=== PATIENT | female | born 1950 | race Hispanic/Latino ===

== ENCOUNTER 2019-07-16 11:00 | Emergency (ER) | payer OTHER, MEDICARE ==
[~2019-07-16 11:00] MED LIST: AMIO200T44 PO; CALC-877 PO; CHOL500045 PO; CIPR-279 PO; FURO-151 PO; INSU10VI3 SQ; LEVO25TA54 PO; LOSA100T58 PO; METF-445 PO; METO50TA18 PO; OMEG1CAP43 PO; POTA10CA44 PO; SIMV40TA59 PO; WARF2TAB57 PO; vit b PO
[2019-07-16] MEDS ORDERED: ONDANSETRON HCL 4 MG/2 ML VIAL ONE (11:29)
[2019-07-16] MEDS ORDERED: SODIUM CHLORIDE 0.9% 1000ML 1,000 ML IV ONE (11:30)
[2019-07-16 11:54] LABS: BASOPHILS % (AUTO) 0.4 % (0.0-5.0); EOSINOPHILS % (AUTO) 0.2 % (0.0-8.0); HEMATOCRIT 37.3 % (36-48); LYMPHOCYTES % (AUTO) 6.1 % (21.0-51.0); MEAN CORPUSCULAR HEMOGLOBIN 31.5 pg (27.0-33.0); MEAN CORPUSCULAR VOLUME 95.6 fL (79-99); MONOCYTES % (AUTO) 3.4 % (3.0-13.0); NEUTROPHILS % (AUTO) 89.4 % (40.0-77.0); PLATELET COUNT (AUTO) 320 K/uL (130-400); RED CELL DISTRIBUTION WIDTH 15.8 % (11.0-15.5); WHITE BLOOD COUNT (AUTO) 21.2 K/uL (4.8-10.8)
[2019-07-16 12:07] LABS: POTASSIUM 3.9 mmol/L (3.5-5.1)
[2019-07-16 12:11] LABS: ALBUMIN 2.2 g/dL (3.5-5.0); BILIRUBIN,DIRECT 0.3 mg/dL (0.0-0.3); BILIRUBIN,TOTAL 0.5 mg/dL (0.2-1.0)
[2019-07-16 12:30] LABS: APPEARANCE,URINE Cloudy (CLEAR); BILIRUBIN,URINE Negative (NEGATIVE); COLOR,URINE Yellow (YELLOW); GLUCOSE, URINE (UA) >=1000 mg/dL (NEGATIVE); KETONES,URINE Trace mg/dL (NEGATIVE); LEUKOCYTE ESTERASE ,URINE Negative (NEGATIVE); NITRATE,URINE Positive (NEGATIVE); OCCULT BLOOD,URINE Moderate (NEGATIVE); PROTEIN,URINE POS 1+ mg/dL (NEGATIVE)
[2019-07-16 12:40] LABS: BACTERIA,URINE Many /HPF (None Seen); RBC,URINE 0-1 /HPF (0-1)
[2019-07-16] MEDS ORDERED: CEFTRIAXONE SODIUM 2 GM VIAL ONE (15:03)
[2019-07-16] MEDS ORDERED: SODIUM CHLORIDE 0.9% 50 ML IV ONE (15:04)
== END 2019-07-16 15:40 | disposition home or self-care (01) ==
LOC: EDH 11:00
DX: K52.9 Noninfective gastroenteritis and colitis, unspecified (principal); E86.0 Dehydration; I10 Essential (primary) hypertension; E11.9 Type 2 diabetes mellitus without complications; Z95.0 Presence of cardiac pacemaker
CPT/HCPCS: 36415; 74176; 80048; 80076; 81001; 82550; 82948; 83690; 85025; 87077; 87088; 87186; 96361; 96374; 96375; 99284; J0696; J2405; J7030

== ENCOUNTER 2019-07-31 14:59 | Inpatient (IN) | payer OTHER, MEDICARE ==
[~2019-07-31] VITALS: Ht 160 cm; Wt 107.0 kg
[2019-07-31 15:30] LABS: BASOPHILS % (AUTO) 0.6 % (0.0-5.0); EOSINOPHILS % (AUTO) 0.9 % (0.0-8.0); HEMATOCRIT 33.3 % (36-48); LYMPHOCYTES % (AUTO) 7.6 % (21.0-51.0); MEAN CORPUSCULAR HEMOGLOBIN 31.6 pg (27.0-33.0); MEAN CORPUSCULAR VOLUME 95.7 fL (79-99); MONOCYTES % (AUTO) 5.5 % (3.0-13.0); NEUTROPHILS % (AUTO) 84.7 % (40.0-77.0); PLATELET COUNT (AUTO) 330 K/uL (130-400); RED BLOOD CELL COUNT(AUTO) 3.48 MIL/uL (4.00-5.50); RED CELL DISTRIBUTION WIDTH 17.6 % (11.0-15.5); WHITE BLOOD COUNT (AUTO) 19.6 K/uL (4.8-10.8)
[2019-07-31 15:41] LABS: INR 1.05 (0.85-1.15); PARTIAL THROMBOPLASTIN TIME 29.4 SEC (26.3-35.5); PROTHROMBIN TIME 11.3 SEC (9.6-11.6)
[2019-07-31 15:45] LABS: POTASSIUM 5.1 mmol/L (3.5-5.1)
[2019-07-31 15:49] LABS: ALBUMIN 2.1 g/dL (3.5-5.0); BILIRUBIN,TOTAL 0.4 mg/dL (0.2-1.0); TOTAL PROTEIN, SERUM 6.5 g/dL (6.0-8.3)
[2019-07-31] MEDS ORDERED: ZOSYN 3.375GM+NS 50ML 50 ML IV ONE (16:22)
[2019-07-31 17:36] LABS: APPEARANCE,URINE Cloudy (CLEAR); BILIRUBIN,URINE Negative (NEGATIVE); COLOR,URINE Yellow (YELLOW); GLUCOSE, URINE (UA) Negative (NEGATIVE); KETONES,URINE Negative (NEGATIVE); LEUKOCYTE ESTERASE ,URINE Large (NEGATIVE); NITRATE,URINE Negative (NEGATIVE); OCCULT BLOOD,URINE Negative (NEGATIVE); PH,URINE 5.5 (5.0-8.0); PROTEIN,URINE Negative (NEGATIVE)
[2019-07-31 17:51] LABS: BACTERIA,URINE Few /HPF (None Seen); RBC,URINE 0-1 /HPF (0-1); SQUAMOUS EPITHELIAL CELL,UR Moderate /HPF (0-2); YEAST,URINE BUDDING Few /HPF (None Seen)
[2019-07-31] MEDS ORDERED: LEVOFLOXACIN 500 MG/D5W 100 ML 100 ML ONE (17:55)
[2019-07-31] MEDS: SODIUM CHLORIDE 0.9% 1000ML 1,000 ML IV SCH (18:03)
[2019-07-31] MEDS: METRONIDAZOLE 500MG/100ML BAG 100 ML IV SCH (18:15)
[2019-07-31] MEDS ORDERED: HYDRALAZINE HCL 20 MG/ML VIAL IV PRN (18:15)
[2019-07-31] MEDS ORDERED: MORPHINE SULFATE 2 MG/ML 1ML SYG IV PRN (18:15)
[2019-07-31] MEDS ORDERED: ONDANSETRON HCL 4 MG/2 ML VIAL IV PRN (18:15)
[2019-07-31] MEDS ORDERED: ACETAMINOPHEN 325 MG TAB PO PRN ×2 (18:15)
[2019-07-31] MEDS ORDERED: METRONIDAZOLE 500MG/100ML BAG 100 ML ONE (19:24)
[2019-07-31] MEDS ORDERED: FAMOTIDINE 20MG TAB 20 MG TAB ONE (19:24)
[2019-07-31] MEDS: ZOSYN 3.375GM+NS 50ML 50 ML IV SCH (20:00)
[2019-07-31] MEDS: INSULIN HUMULIN R 100 UNIT/ML 3ML SQ SCH (21:00)
[2019-07-31] MEDS: FAMOTIDINE 20MG TAB 20 MG TAB PO SCH (21:00)
[2019-07-31 23:15] VITALS: BP 125/60
[2019-08-01] MEDS: METRONIDAZOLE 500MG/100ML BAG 100 ML IV SCH ×2 (02:23→11:33)
[2019-08-01 03:46] LABS: BASOPHILS % (AUTO) 0.6 % (0.0-5.0); EOSINOPHILS % (AUTO) 1.5 % (0.0-8.0); HEMATOCRIT 30.5 % (36-48); LYMPHOCYTES % (AUTO) 9.6 % (21.0-51.0); MEAN CORPUSCULAR HEMOGLOBIN 32.3 pg (27.0-33.0); MEAN CORPUSCULAR HGB CONC 33.4 g/dL (32.0-36.0); MEAN CORPUSCULAR VOLUME 96.5 fL (79-99); MONOCYTES % (AUTO) 6.5 % (3.0-13.0); NEUTROPHILS % (AUTO) 81.2 % (40.0-77.0); PLATELET COUNT (AUTO) 302 K/uL (130-400); RED BLOOD CELL COUNT(AUTO) 3.16 MIL/uL (4.00-5.50); RED CELL DISTRIBUTION WIDTH 17.4 % (11.0-15.5); WHITE BLOOD COUNT (AUTO) 19.8 K/uL (4.8-10.8)
[2019-08-01 04:02] LABS: CREATININE 3.6 mg/dL (0.5-1.5); MAGNESIUM 2.3 mg/dL (1.80-2.40); PHOSPHORUS 4.3 mg/dL (2.5-4.9); POTASSIUM 5.1 mmol/L (3.5-5.1); URIC ACID 10.4 mg/dL (2.6-7.2)
[2019-08-01] MEDS ORDERED: HYDROMORPHONE HCL 2 MG/ML VIAL IVP PRN (04:15)
[2019-08-01 04:20] VITALS: BP_SYST 108; BP_SYST 127; BP_DIAS 51; BP_DIAS 74
[2019-08-01] MEDS: INSULIN HUMULIN R 100 UNIT/ML 3ML SQ SCH ×4 (06:59→20:21)
[2019-08-01] MEDS ORDERED: GABA-531 PO (07:34)
[2019-08-01] MEDS ORDERED: RIVA15TA PO (07:34)
[2019-08-01] MEDS ORDERED: LINA5TAB PO (07:34)
[2019-08-01] MEDS ORDERED: [UNRECOGNIZED DRUG - MIXTURE] PO (07:34)
[2019-08-01] MEDS ORDERED: METR-152 PO (07:34)
[2019-08-01] MEDS ORDERED: BUME2TAB5 PO (07:34)
[2019-08-01] MEDS ORDERED: METO-391 PO (07:34)
[2019-08-01] MEDS ORDERED: BUME1TAB6 PO (07:34)
[2019-08-01] MEDS ORDERED: ISOS30TA6 PO (07:34)
[2019-08-01] MEDS ORDERED: PROM25TA7 PO (07:34)
[2019-08-01] MEDS ORDERED: AMLO-257 PO (07:34)
[2019-08-01 08:11] VITALS: BP 114/56
[2019-08-01] MEDS ORDERED: ENOXAPARIN SODIUM 40 MG/0.4 ML SYRINGE SQ SCH (09:00)
[2019-08-01] MEDS: SODIUM CHLORIDE 0.9% 1000ML 1,000 ML IV SCH ×2 (09:23→19:47)
[2019-08-01] MEDS: FAMOTIDINE 20MG TAB 20 MG TAB PO SCH (09:24)
[2019-08-01] MEDS: ZOSYN 3.375GM+NS 50ML 50 ML IV SCH ×2 (09:24→19:47)
[2019-08-01] MEDS: NYSTATIN 15 GM POWDER TP SCH ×2 (11:33→19:47)
[2019-08-01 11:45] VITALS: BP 109/54
--- NOTE | 2019-08-01 13:47 | NUR ---
INITIAL SW spoke with patient. She states she lives with daughter, Geri Pradhan but doesn't remember phone number. No home health but does have [facility] weekly but does not remember name of agency or number of hours per week. DME: [facility]. Patient states she needs help with ADL's and does not drive. Family and provider assist as needed. PCP is Dr. Oliver Glaser. Pharmacy is [facility]. DCP is home. Addendum: 08/01/19 at 1349 by ELADIA FARMER SS Amended: Links added.
[2019-08-01 17:02] VITALS: BP 130/59
[2019-08-01] MEDS ORDERED: PROMETHAZINE HCL 25 MG TABLET PO PRN (18:30)
[2019-08-01 19:03] VITALS: BP 103/47
[2019-08-01] MEDS: AMIODARONE HCL 200 MG TABLET PO SCH (19:47)
[2019-08-01] MEDS: DOCUSATE SODIUM 100 MG CAP PO SCH (19:47)
[2019-08-01] MEDS: BISACODYL 5 MG TABLET.DR PO SCH (19:47)
[2019-08-01] MEDS: GABAPENTIN 300 MG CAPSULE PO SCH (20:24)
[2019-08-01 23:03] VITALS: BP 102/46
[2019-08-02 04:00] VITALS: BP 114/46
[2019-08-02] MEDS: INSULIN HUMULIN R 100 UNIT/ML 3ML SQ SCH ×4 (05:37→20:34)
[2019-08-02 05:45] LABS: BASOPHILS % (AUTO) 0.5 % (0.0-5.0); EOSINOPHILS % (AUTO) 0.8 % (0.0-8.0); HEMATOCRIT 31.3 % (36-48); LYMPHOCYTES % (AUTO) 7.8 % (21.0-51.0); MEAN CORPUSCULAR HEMOGLOBIN 31.7 pg (27.0-33.0); MEAN CORPUSCULAR HGB CONC 32.9 g/dL (32.0-36.0); MEAN CORPUSCULAR VOLUME 96.3 fL (79-99); MONOCYTES % (AUTO) 4.9 % (3.0-13.0); NEUTROPHILS % (AUTO) 85.6 % (40.0-77.0); PLATELET COUNT (AUTO) 290 K/uL (130-400); RED BLOOD CELL COUNT(AUTO) 3.25 MIL/uL (4.00-5.50); RED CELL DISTRIBUTION WIDTH 17.7 % (11.0-15.5)
[2019-08-02] MEDS: LEVOTHYROXINE 100 MCG TABLET PO SCH (05:52)
[2019-08-02 06:02] LABS: CREATININE 3.1 mg/dL (0.5-1.5); CRP QUANTITATIVE 69.3 mg/L (0.00-9.0); MAGNESIUM 2.2 mg/dL (1.80-2.40); POTASSIUM 5.2 mmol/L (3.5-5.1)
[2019-08-02 07:30] VITALS: BP 102/51
[2019-08-02] MEDS: ZOSYN 3.375GM+NS 50ML 50 ML IV SCH ×2 (08:00→22:47)
[2019-08-02 08:10] LABS: HEPATITIS A ANTIBODY IGM Negative (Negative); HEPATITIS B CORE IGM Negative (Negative); HEPATITIS Bs ANTIGEN SCREEN P Negative (Negative)
[2019-08-02] MEDS: BISACODYL 5 MG TABLET.DR PO SCH ×3 (09:00→22:46)
[2019-08-02] MEDS: METOPROLOL SUCCINATE 50 MG TAB.SR.24H PO SCH (09:00)
[2019-08-02] MEDS: FAMOTIDINE 20MG TAB 20 MG TAB PO SCH (10:12)
[2019-08-02] MEDS: GABAPENTIN 300 MG CAPSULE PO SCH ×3 (10:12→22:47)
[2019-08-02] MEDS: DOCUSATE SODIUM 100 MG CAP PO SCH ×2 (10:12→22:46)
[2019-08-02] MEDS: NYSTATIN 15 GM POWDER TP SCH ×2 (10:14→22:47)
[2019-08-02] MEDS: SODIUM CHLORIDE 0.9% 1000ML 1,000 ML IV SCH ×2 (10:14→22:50)
[2019-08-02] MEDS: LINAGLIPTIN 5 MG TABLET PO SCH (10:15)
[2019-08-02 10:43] LABS: ALBUMIN 1.7 g/dL (3.5-5.0); BILIRUBIN,DIRECT 0.4 mg/dL (0.0-0.3); BILIRUBIN,TOTAL 0.6 mg/dL (0.2-1.0); TOTAL PROTEIN, SERUM 5.5 g/dL (6.0-8.3)
[2019-08-02] MEDS ORDERED: SODIUM POLYSTYRENE SULFONATE 15 GM/60 ML ML PO SCH (10:45)
[2019-08-02 11:00] VITALS: BP 108/54
[2019-08-02] MEDS: AMIODARONE HCL 200 MG TABLET PO SCH ×2 (13:20→22:46)
[2019-08-02 16:00] VITALS: BP 106/65
[2019-08-02] MEDS: RIVAROXABAN 15 MG TABLET PO SCH (17:38)
[2019-08-02 19:10] VITALS: BP 115/65
[2019-08-02 23:16] VITALS: BP 121/54
[2019-08-03 03:20] VITALS: BP 123/59
[2019-08-03 04:11] LABS: BASOPHILS % (AUTO) 0.4 % (0.0-5.0); EOSINOPHILS % (AUTO) 0.2 % (0.0-8.0); LYMPHOCYTES % (AUTO) 6.6 % (21.0-51.0); MEAN CORPUSCULAR HEMOGLOBIN 32.7 pg (27.0-33.0); MEAN CORPUSCULAR HGB CONC 33.1 g/dL (32.0-36.0); MEAN CORPUSCULAR VOLUME 98.8 fL (79-99); MONOCYTES % (AUTO) 4.5 % (3.0-13.0); NEUTROPHILS % (AUTO) 87.6 % (40.0-77.0); PLATELET COUNT (AUTO) 321 K/uL (130-400); RED BLOOD CELL COUNT(AUTO) 3.24 MIL/uL (4.00-5.50); RED CELL DISTRIBUTION WIDTH 18.2 % (11.0-15.5); WHITE BLOOD COUNT (AUTO) 22.2 K/uL (4.8-10.8)
[2019-08-03 04:40] LABS: ALBUMIN 1.8 g/dL (3.5-5.0); BILIRUBIN,TOTAL 0.7 mg/dL (0.2-1.0); CREATININE 2.9 mg/dL (0.5-1.5); PHOSPHORUS 4.1 mg/dL (2.5-4.9); POTASSIUM 4.7 mmol/L (3.5-5.1); TOTAL PROTEIN, SERUM 5.9 g/dL (6.0-8.3)
[2019-08-03] MEDS: LEVOTHYROXINE 100 MCG TABLET PO SCH (06:15)
[2019-08-03] MEDS: INSULIN HUMULIN R 100 UNIT/ML 3ML SQ SCH ×4 (06:15→20:41)
[2019-08-03 07:23] VITALS: BP 146/57
[2019-08-03] MEDS: DOCUSATE SODIUM 100 MG CAP PO SCH ×2 (09:00→20:17)
[2019-08-03] MEDS: GABAPENTIN 300 MG CAPSULE PO SCH ×3 (09:00→20:17)
[2019-08-03] MEDS: BISACODYL 5 MG TABLET.DR PO SCH ×2 (09:00→20:17)
[2019-08-03] MEDS: ZOSYN 3.375GM+NS 50ML 50 ML IV SCH (10:42)
[2019-08-03 10:58] VITALS: BP 119/67
[2019-08-03] MEDS: SODIUM CHLORIDE 0.9% 1000ML 1,000 ML IV SCH (12:43)
[2019-08-03] MEDS: NYSTATIN 15 GM POWDER TP SCH ×2 (13:22→20:41)
[2019-08-03] MEDS: FAMOTIDINE 20MG TAB 20 MG TAB PO SCH (13:22)
[2019-08-03] MEDS: AMIODARONE HCL 200 MG TABLET PO SCH ×2 (13:22→20:17)
[2019-08-03] MEDS: LINAGLIPTIN 5 MG TABLET PO SCH (13:22)
[2019-08-03] MEDS: METOPROLOL SUCCINATE 50 MG TAB.SR.24H PO SCH (13:24)
[2019-08-03 15:56] VITALS: BP 148/46
[2019-08-03] MEDS ORDERED: MEROPENEM 500 MG VIAL IVP SCH (17:00)
[2019-08-03] MEDS ORDERED: RENAL DOSE IV PRN (17:00)
[2019-08-03] MEDS: RIVAROXABAN 15 MG TABLET PO SCH (17:17)
--- NOTE | 2019-08-03 18:13 | NUR ---
ID CONSULT aware of consult.
[2019-08-03 19:01] LABS: ABG BASE EXCESS 0.4 mmol/L (-2.0-3.0); ABG HCO3 25.2 mmol/L (21.0-28.0); ABG OXYGEN SATURATION 90.7 % (95.0-99.0); ABG PCO2 41 mmHg (32-45)
[2019-08-03 20:00] VITALS: BP 127/58
[2019-08-03] MEDS: MEROPENEM 500 MG VIAL IVP SCH (20:17)
[2019-08-04] VITALS (7 sets, daily range): BP systolic 101–141; BP diastolic 49–60
[2019-08-04] MEDS: SODIUM CHLORIDE 0.9% 1000ML 1,000 ML IV SCH ×3 (01:50→22:18)
[2019-08-04 04:03] LABS: HEMATOCRIT 31.2 % (36-48); MEAN CORPUSCULAR HEMOGLOBIN 31.7 pg (27.0-33.0); MEAN CORPUSCULAR HGB CONC 32.1 g/dL (32.0-36.0); PLATELET COUNT (AUTO) 293 K/uL (130-400); RED BLOOD CELL COUNT(AUTO) 3.15 MIL/uL (4.00-5.50); RED CELL DISTRIBUTION WIDTH 18.7 % (11.0-15.5)
[2019-08-04 04:18] LABS: ALBUMIN 1.7 g/dL (3.5-5.0); BILIRUBIN,TOTAL 0.4 mg/dL (0.2-1.0); CREATININE 2.7 mg/dL (0.5-1.5); TOTAL PROTEIN, SERUM 5.7 g/dL (6.0-8.3)
[2019-08-04 04:40] LABS: BAND NEUTROPHILS % (MANUAL) 3 % (0-2); BASOPHILS % (MANUAL) 1 % (0-2); EOSINOPHILS % (MANUAL) 2 % (1-6); LYMPHOCYTES % (MANUAL) 7 % (22-44); MAN.DIFF COMMENT-IMPRESSION MANUAL DIFFERENTIAL; MONOCYTES % (MANUAL) 7 % (2-9); SEGMENTED NEUTROPHILS % 80 % (40-70)
[2019-08-04] MEDS: INSULIN HUMULIN R 100 UNIT/ML 3ML SQ SCH ×4 (06:57→21:00)
--- NOTE | 2019-08-04 06:58 | NUR ---
URINE MADE AWARE BY AB INITIO ETL DEVELOPER PT HAS NOT URINATED ALL SHIFT, ANTONY CATHETER INSERTED PER MD ORDER TO OBTAIN URINE CULTURE. 500ML OF CLEAR, SEE COLOR, STRONG ODOR URINE OBTAINED. URINE CULTURE SENT TO LAB, PENDING CALL BACK FROM MD TO LEAVING ANTONY CATHETER IN PACE FOR URINARY RETENTION OR REMOVING ANTONY.
[2019-08-04] MEDS: LEVOTHYROXINE 100 MCG TABLET PO SCH (07:49)
[2019-08-04] MEDS: MEROPENEM 500 MG VIAL IVP SCH ×2 (07:49→18:07)
[2019-08-04] MEDS: BISACODYL 5 MG TABLET.DR PO SCH ×2 (08:43→22:20)
[2019-08-04] MEDS: AMIODARONE HCL 200 MG TABLET PO SCH ×2 (08:43→22:20)
[2019-08-04] MEDS: LINAGLIPTIN 5 MG TABLET PO SCH (08:44)
[2019-08-04] MEDS: METOPROLOL SUCCINATE 50 MG TAB.SR.24H PO SCH (08:44)
[2019-08-04] MEDS: FAMOTIDINE 20MG TAB 20 MG TAB PO SCH (08:44)
[2019-08-04] MEDS: GABAPENTIN 300 MG CAPSULE PO SCH ×3 (08:44→22:20)
[2019-08-04] MEDS: DOCUSATE SODIUM 100 MG CAP PO SCH ×2 (08:44→22:20)
[2019-08-04] MEDS: NYSTATIN 15 GM POWDER TP SCH ×2 (08:47→22:20)
[2019-08-04] MEDS ORDERED: LEVOFLOXACIN 500 MG/D5W 100 ML 100 ML IV SCH (15:45)
--- NOTE | 2019-08-04 16:49 | NUR ---
CM NOTE dr lopez spoke to pt and CM regarding dc planning to [facility] for possible dc today, states is in agreement after md explained to her.per MD states pt alert and comprehends enough to sign choice letter and Release [facility] requesting family be notified. call made to phone #s on the demographic sheet, no answer. discussed with primary nurse and states family called earlier. but no number noted. orders received by md to ensure family aware of referral and plan for transfer prior to transferring patient. updated primary nurse Michael of above. referral faxed
[2019-08-04] MEDS: RIVAROXABAN 15 MG TABLET PO SCH (18:08)
[2019-08-05 03:41] VITALS: BP 114/57
[2019-08-05 04:38] LABS: BASOPHILS % (AUTO) 0.6 % (0.0-5.0); EOSINOPHILS % (AUTO) 2.5 % (0.0-8.0); HEMATOCRIT 31.8 % (36-48); MEAN CORPUSCULAR HEMOGLOBIN 31.9 pg (27.0-33.0); MEAN CORPUSCULAR HGB CONC 31.8 g/dL (32.0-36.0); MEAN CORPUSCULAR VOLUME 100.3 fL (79-99); MONOCYTES % (AUTO) 5.8 % (3.0-13.0); NEUTROPHILS % (AUTO) 80.7 % (40.0-77.0); PLATELET COUNT (AUTO) 297 K/uL (130-400); RED BLOOD CELL COUNT(AUTO) 3.17 MIL/uL (4.00-5.50); RED CELL DISTRIBUTION WIDTH 19.1 % (11.0-15.5); WHITE BLOOD COUNT (AUTO) 19.2 K/uL (4.8-10.8)
[2019-08-05 05:04] LABS: ALBUMIN 1.7 g/dL (3.5-5.0); BILIRUBIN,TOTAL 0.4 mg/dL (0.2-1.0); CREATININE 2.6 mg/dL (0.5-1.5); MAGNESIUM 2.1 mg/dL (1.80-2.40); PHOSPHORUS 3.6 mg/dL (2.5-4.9); POTASSIUM 3.6 mmol/L (3.5-5.1); TOTAL PROTEIN, SERUM 5.6 g/dL (6.0-8.3)
[2019-08-05] MEDS: INSULIN HUMULIN R 100 UNIT/ML 3ML SQ SCH ×4 (05:58→22:26)
[2019-08-05] MEDS: LEVOTHYROXINE 100 MCG TABLET PO SCH (06:25)
[2019-08-05] MEDS: MEROPENEM 500 MG VIAL IVP SCH ×2 (06:26→18:55)
[2019-08-05 07:30] VITALS: BP 125/53
[2019-08-05] MEDS: GABAPENTIN 300 MG CAPSULE PO SCH ×3 (08:43→22:01)
[2019-08-05] MEDS: LINAGLIPTIN 5 MG TABLET PO SCH (08:43)
[2019-08-05] MEDS: AMIODARONE HCL 200 MG TABLET PO SCH ×2 (08:43→22:01)
[2019-08-05] MEDS: FAMOTIDINE 20MG TAB 20 MG TAB PO SCH (08:43)
[2019-08-05] MEDS: DOCUSATE SODIUM 100 MG CAP PO SCH ×2 (08:43→22:01)
[2019-08-05] MEDS: METOPROLOL SUCCINATE 50 MG TAB.SR.24H PO SCH (08:43)
[2019-08-05] MEDS: BISACODYL 5 MG TABLET.DR PO SCH ×2 (08:43→22:01)
[2019-08-05] MEDS: NYSTATIN 15 GM POWDER TP SCH ×2 (08:47→22:01)
--- NOTE | 2019-08-05 10:00 | NUR ---
Shae Received call from [facility] this am. She mentions that pt has not been accepted and is pending review. She mentions that she is needing prescreen data sheet completed and faxed back to her. Form printed, discussed w primary nurse. Per Nurse Pritchard she will fill out and return to CM when done.
[2019-08-05 11:30] VITALS: BP 104/52
--- NOTE | 2019-08-05 13:07 | NUR ---
DR CAPUTO ROUNDED ON PATIENT ORDERS RECEIVED FOR CBC WITH MANUAL DIFF AND CMP IN AM, ORDERES PLACED
[2019-08-05] MEDS ORDERED: LEVOFLOXACIN 250 MG/D5W 50ML 50 ML IVPB SCH (15:00)
[2019-08-05 15:30] VITALS: BP 136/73
[2019-08-05] MEDS: RIVAROXABAN 15 MG TABLET PO SCH (17:04)
[2019-08-05] MEDS: SODIUM CHLORIDE 0.9% 1000ML 1,000 ML IV SCH (18:03)
[2019-08-05 20:00] VITALS: BP 149/64
[2019-08-06 03:55] LABS: BASOPHILS % (AUTO) 0.5 % (0.0-5.0); EOSINOPHILS % (AUTO) 1.9 % (0.0-8.0); HEMATOCRIT 31.5 % (36-48); LYMPHOCYTES % (AUTO) 8.7 % (21.0-51.0); MEAN CORPUSCULAR HEMOGLOBIN 31.9 pg (27.0-33.0); MEAN CORPUSCULAR HGB CONC 32.1 g/dL (32.0-36.0); MEAN CORPUSCULAR VOLUME 99.4 fL (79-99); MONOCYTES % (AUTO) 4.9 % (3.0-13.0); NEUTROPHILS % (AUTO) 83.4 % (40.0-77.0); PLATELET COUNT (AUTO) 296 K/uL (130-400); RED BLOOD CELL COUNT(AUTO) 3.17 MIL/uL (4.00-5.50); RED CELL DISTRIBUTION WIDTH 18.3 % (11.0-15.5); WHITE BLOOD COUNT (AUTO) 18.8 K/uL (4.8-10.8)
[2019-08-06 04:05] VITALS: BP 113/51
[2019-08-06 04:13] LABS: ALBUMIN 1.8 g/dL (3.5-5.0); BILIRUBIN,TOTAL 0.5 mg/dL (0.2-1.0); CREATININE 2.4 mg/dL (0.5-1.5); POTASSIUM 3.9 mmol/L (3.5-5.1); TOTAL PROTEIN, SERUM 5.6 g/dL (6.0-8.3)
[2019-08-06] MEDS: INSULIN HUMULIN R 100 UNIT/ML 3ML SQ SCH ×4 (05:32→21:19)
[2019-08-06] MEDS: LEVOTHYROXINE 100 MCG TABLET PO SCH (05:46)
[2019-08-06] MEDS: MEROPENEM 500 MG VIAL IVP SCH ×2 (05:46→18:28)
[2019-08-06 08:00] VITALS: BP 140/61
--- NOTE | 2019-08-06 09:00 | NUR ---
blaise note spoke to terence with [facility]. and states no approval yet. and also has not been able to reach family. informed of #s called with no answer. also, informed Roxanne primary nurse, to please followup if family calls in to speak to pt. will need correct phone #s. and will need to update them of plans for [facility] transfer. verbalizes understanding.
[2019-08-06] MEDS: DOCUSATE SODIUM 100 MG CAP PO SCH ×2 (09:41→21:11)
[2019-08-06] MEDS: NYSTATIN 15 GM POWDER TP SCH ×2 (09:41→21:11)
[2019-08-06] MEDS: FAMOTIDINE 20MG TAB 20 MG TAB PO SCH (09:41)
[2019-08-06] MEDS: METOPROLOL SUCCINATE 50 MG TAB.SR.24H PO SCH (09:41)
[2019-08-06] MEDS: LINAGLIPTIN 5 MG TABLET PO SCH (09:41)
[2019-08-06] MEDS: BISACODYL 5 MG TABLET.DR PO SCH ×2 (09:41→21:11)
[2019-08-06] MEDS: AMIODARONE HCL 200 MG TABLET PO SCH ×2 (09:41→21:11)
[2019-08-06] MEDS: GABAPENTIN 300 MG CAPSULE PO SCH ×3 (09:41→21:11)
[2019-08-06 11:51] VITALS: BP 139/65
--- NOTE | 2019-08-06 15:24 | NUR ---
cm note received call from Adilene primary nurse with name and number for daughter , Malgorzata Khan, call made to malgorzata, states she is daughter, explained to her that md has ordered [facility] referral, and updated on pt's need for IV antibiotics therapy for appox 2-[address] lopez. per jaylen state she has spoken to her sister troy taylor, who is also pt's daughter, and they are in agreement for [facility]. informed not approved yet, but pending approval, also informed that Shae pratt will be calling her as well. malgorzata verbalizes understanding. and in agreement for [facility] transfer if accepted.
[2019-08-06 16:00] VITALS: BP 140/79
[2019-08-06] MEDS: RIVAROXABAN 15 MG TABLET PO SCH (17:09)
[2019-08-06 20:38] VITALS: BP 133/74
[2019-08-06 23:49] VITALS: BP 123/63
[2019-08-07 03:56] VITALS: BP 128/56
[2019-08-07 04:03] LABS: BASOPHILS % (AUTO) 0.6 % (0.0-5.0); EOSINOPHILS % (AUTO) 1.3 % (0.0-8.0); HEMATOCRIT 31.5 % (36-48); LYMPHOCYTES % (AUTO) 8.5 % (21.0-51.0); MEAN CORPUSCULAR HEMOGLOBIN 32.1 pg (27.0-33.0); MEAN CORPUSCULAR HGB CONC 32.4 g/dL (32.0-36.0); MEAN CORPUSCULAR VOLUME 99.1 fL (79-99); MONOCYTES % (AUTO) 4.9 % (3.0-13.0); NEUTROPHILS % (AUTO) 84.1 % (40.0-77.0); PLATELET COUNT (AUTO) 283 K/uL (130-400); RED BLOOD CELL COUNT(AUTO) 3.18 MIL/uL (4.00-5.50); RED CELL DISTRIBUTION WIDTH 18.3 % (11.0-15.5); WHITE BLOOD COUNT (AUTO) 19.4 K/uL (4.8-10.8)
[2019-08-07 04:29] LABS: ALBUMIN 1.7 g/dL (3.5-5.0); BILIRUBIN,TOTAL 0.3 mg/dL (0.2-1.0); CREATININE 2.1 mg/dL (0.5-1.5); POTASSIUM 3.9 mmol/L (3.5-5.1); TOTAL PROTEIN, SERUM 5.5 g/dL (6.0-8.3)
[2019-08-07] MEDS: LEVOTHYROXINE 100 MCG TABLET PO SCH (05:37)
[2019-08-07] MEDS: MEROPENEM 500 MG VIAL IVP SCH ×2 (05:37→18:23)
[2019-08-07] MEDS: INSULIN HUMULIN R 100 UNIT/ML 3ML SQ SCH ×4 (07:30→20:03)
[2019-08-07 07:53] VITALS: BP 126/67
[2019-08-07] MEDS: LACTULOSE 20 GM/30 ML UDCUP PO SCH (09:00)
[2019-08-07] MEDS: BISACODYL 5 MG TABLET.DR PO SCH ×2 (09:00→20:03)
[2019-08-07] MEDS: LINAGLIPTIN 5 MG TABLET PO SCH (09:58)
[2019-08-07] MEDS: METOPROLOL SUCCINATE 50 MG TAB.SR.24H PO SCH (09:58)
[2019-08-07] MEDS: FUROSEMIDE 10 MG/ML 2ML VIAL IV SCH ×2 (09:58→20:03)
[2019-08-07] MEDS: DOCUSATE SODIUM 100 MG CAP PO SCH ×2 (09:58→20:03)
[2019-08-07] MEDS: AMIODARONE HCL 200 MG TABLET PO SCH ×2 (09:58→20:03)
[2019-08-07] MEDS: NYSTATIN 15 GM POWDER TP SCH ×2 (09:59→20:05)
[2019-08-07] MEDS: FAMOTIDINE 20MG TAB 20 MG TAB PO SCH (09:59)
[2019-08-07] MEDS: GABAPENTIN 300 MG CAPSULE PO SCH ×3 (09:59→20:05)
[2019-08-07 12:00] VITALS: BP 127/61
[2019-08-07 16:00] VITALS: BP 129/53
[2019-08-07] MEDS: RIVAROXABAN 15 MG TABLET PO SCH (18:23)
[2019-08-07 19:46] VITALS: BP 126/99
--- NOTE | 2019-08-07 20:05 | NUR ---
[facility]S AWAKENED PT FOR DUE MEDS. SHIFT ASSESSMENT DONE, PLEASE REFER TO CHART. DUE MEDS ADMINISTERED, TOLERATED WELL. KEPT RESTED AND COMFORTABLE IN BED WITH HOB ELEVATED. CALL LIGHT WITHIN REACH. WILL MONITOR PT. Addendum: 08/07/19 at 2307 by DIEGO GARCIA RN RN Amended: Links added.
--- NOTE | 2019-08-07 22:00 | NUR ---
ROUNDS PT RESTING WELL WITH RESPIRATIONS EVEN AND UNLABORED. NO NOTED DISTRESS. KEPT UNDISTURBED FOR NOW. WILL CONTINUE TO MONITOR.
[2019-08-07 23:37] VITALS: BP 120/42
--- NOTE | 2019-08-08 02:00 | NUR ---
ROUNDS PT RESTING WELL, NO DISTRESS NOTED. KEPT UNDISTURBED FOR NOW. WILL CONTINUE TO MONITOR.
[2019-08-08 04:00] VITALS: BP 139/70
[2019-08-08] MEDS: MEROPENEM 500 MG VIAL IVP SCH (05:40)
[2019-08-08] MEDS: LEVOTHYROXINE 100 MCG TABLET PO SCH (05:40)
--- NOTE | 2019-08-08 05:40 | NUR ---
MEDS PT ALREADY AWAKE. DENIES ANY CONCERNS AT THIS TIME. DUE MEDS ADMINISTERED, TOLERATED WELL. FOR MORE CARE.
[2019-08-08] MEDS: INSULIN HUMULIN R 100 UNIT/ML 3ML SQ SCH ×2 (05:44→12:19)
[2019-08-08 05:51] LABS: BASOPHILS % (AUTO) 0.5 % (0.0-5.0); EOSINOPHILS % (AUTO) 1.6 % (0.0-8.0); HEMATOCRIT 31.8 % (36-48); LYMPHOCYTES % (AUTO) 8.4 % (21.0-51.0); MEAN CORPUSCULAR HEMOGLOBIN 31.9 pg (27.0-33.0); MEAN CORPUSCULAR HGB CONC 32.4 g/dL (32.0-36.0); MEAN CORPUSCULAR VOLUME 98.5 fL (79-99); MONOCYTES % (AUTO) 5.1 % (3.0-13.0); NEUTROPHILS % (AUTO) 83.6 % (40.0-77.0); PLATELET COUNT (AUTO) 286 K/uL (130-400); RED BLOOD CELL COUNT(AUTO) 3.23 MIL/uL (4.00-5.50); RED CELL DISTRIBUTION WIDTH 18.4 % (11.0-15.5); WHITE BLOOD COUNT (AUTO) 18.6 K/uL (4.8-10.8)
[2019-08-08 06:39] LABS: CREATININE 1.9 mg/dL (0.5-1.5); POTASSIUM 3.8 mmol/L (3.5-5.1)
[2019-08-08 08:00] VITALS: BP 120/53
[2019-08-08 08:10] LABS: HEPATITIS A ANTIBODY IGM Negative (Negative); HEPATITIS B CORE IGM Negative (Negative); HEPATITIS Bs ANTIGEN SCREEN P Negative (Negative)
[2019-08-08] MEDS: LACTULOSE 20 GM/30 ML UDCUP PO SCH (09:00)
[2019-08-08] MEDS: LINAGLIPTIN 5 MG TABLET PO SCH (09:58)
[2019-08-08] MEDS: FAMOTIDINE 20MG TAB 20 MG TAB PO SCH (09:58)
[2019-08-08] MEDS: AMIODARONE HCL 200 MG TABLET PO SCH (09:59)
[2019-08-08] MEDS: METOPROLOL SUCCINATE 50 MG TAB.SR.24H PO SCH (09:59)
[2019-08-08] MEDS: GABAPENTIN 300 MG CAPSULE PO SCH ×2 (09:59→16:24)
[2019-08-08] MEDS: DOCUSATE SODIUM 100 MG CAP PO SCH (09:59)
[2019-08-08] MEDS: BISACODYL 5 MG TABLET.DR PO SCH (09:59)
[2019-08-08] MEDS: FUROSEMIDE 10 MG/ML 2ML VIAL IV SCH (10:00)
[2019-08-08] MEDS: NYSTATIN 15 GM POWDER TP SCH (10:04)
--- NOTE | 2019-08-08 10:15 | NUR ---
ACCEPTED AT [facility] ADVISED, PRIMARY RN ADVISED
[2019-08-08 11:00] VITALS: BP 131/56
--- NOTE | 2019-08-08 12:37 | NUR ---
blaise roberto called dr lopez on the phone and received order to not place picc line and go ahead and send pt to [facility].
--- NOTE | 2019-08-08 15:49 | NUR ---
d/c report called and faxed to jonathan at [facility]; i did have to fax multiple times to them before the fax would go through and they would take report; i have also called [facility] for transport; they stated they would have to verify her insurance then would pick her up; pt will be d/c with iv in place since she is going for iv abx. pt states understanding of transfer.
--- NOTE | 2019-08-08 16:15 | NUR ---
Nutrition Intervention: Nutrition screen based on LOS x 8 days. Pt. pending D/C to [facility] today. Pt. on 2gm Na Gen. Heart Healthy 75gm CCD diet. Pt. reports eating 25% of her meals due to decreased appetite. Pt. reports no chewing or swallowing difficulties. Labs reviewed(BUN 25, Creat 1.9, GFR 28, BG 226, AST/ALT 210/135, Alk Phos 304, Alb 1.7). Noted renal labs improving. SR-20, perineal redness. LBM: 08/07/2019. BMI: 41.8, Obesity Grade 3. Recommendations: 1) Rec. Glucerna supp. BID with B'fast and dinner meals. 2) Continue to monitor pt's nutritional status. 3) Consult RD as nutrition concerns arise. Addendum: 08/08/19 at [address] Amended: Links added.
[2019-08-08] MEDS: RIVAROXABAN 15 MG TABLET PO SCH (16:24)
--- NOTE | 2019-08-08 16:31 | NUR ---
[facility] HERE TO PICK PT UP.
== END 2019-08-08 16:35 | DRG 872 ==
LOC: EDH 14:59 → EDHIP 18:03 → 4AH 22:41
PROVIDERS: ADMIT Internal Medicine; ATTEND Internal Medicine
PROC: 5A09357 Assistance with Respiratory Ventilation, Less than 24 Consecutive Hours, Continuous Positive Airway Pressure (ICD-10-PCS; principal; 2019-08-05)
DX: A41.50 Gram-negative sepsis, unspecified (principal); N17.9 Acute kidney failure, unspecified; N39.0 Urinary tract infection, site not specified; E87.1 Hypo-osmolality and hyponatremia; N18.4 Chronic kidney disease, stage 4 (severe); Z16.12 Extended spectrum beta lactamase (ESBL) resistance; G93.49 Other encephalopathy; E44.0 Moderate protein-calorie malnutrition; Z68.41 Body mass index [BMI] 40.0-44.9, adult; K52.9 Noninfective gastroenteritis and colitis, unspecified; K80.20 Calculus of gallbladder without cholecystitis without obstruction; B96.5 Pseudomonas (aeruginosa) (mallei) (pseudomallei) as the cause of diseases classified elsewhere; E66.01 Morbid (severe) obesity due to excess calories; B96.20 Unspecified Escherichia coli [E. coli] as the cause of diseases classified elsewhere; D64.9 Anemia, unspecified; E03.9 Hypothyroidism, unspecified; E11.22 Type 2 diabetes mellitus with diabetic chronic kidney disease; E78.5 Hyperlipidemia, unspecified; E87.5 Hyperkalemia; E87.70 Fluid overload, unspecified; F03.90 Unspecified dementia, unspecified severity, without behavioral disturbance, psychotic disturbance, mood disturbance, and anxiety; I12.9 Hypertensive chronic kidney disease with stage 1 through stage 4 chronic kidney disease, or unspecified chronic kidney disease; I25.10 Atherosclerotic heart disease of native coronary artery without angina pectoris; I25.2 Old myocardial infarction; I48.91 Unspecified atrial fibrillation; Z74.01 Bed confinement status; Z78.9 Other specified health status; Z79.01 Long term (current) use of anticoagulants; Z82.0 Family history of epilepsy and other diseases of the nervous system; Z82.3 Family history of stroke; Z82.49 Family history of ischemic heart disease and other diseases of the circulatory system; Z82.5 Family history of asthma and other chronic lower respiratory diseases; Z83.3 Family history of diabetes mellitus; Z86.73 Personal history of transient ischemic attack (TIA), and cerebral infarction without residual deficits; Z90.710 Acquired absence of both cervix and uterus; Z95.0 Presence of cardiac pacemaker
CPT/HCPCS: 36415; 36600; 70450; 71045; 74018; 74176; 76705; 76770; 80048; 80053; 80074; 80076; 81001; 82140; 82150; 82270; 82550; 82803; 82948; 83605; 83630; 83690; 83735; 83880; 84100; 84145; 84484; 84550; 85025; 85610; 85730; 86140; 87040; 87046; 87077; 87088; 87186; 87804; 93005; 94660; 97039; G0378; J1170; J1650; J1815; J1940; J1956; J2185; J2405; J2543; J3490; J7030